=== PATIENT | female | born 1965 | race Two or more races ===

== ENCOUNTER → 2024-09-11 09:15 | Outpatient (BNV) | payer OTHER, SELFPAY | PROVIDERS: Visit Provider Psychiatry & Neurology Psychiatry | DX: F33.2 Major depressive disorder, recurrent severe without psychotic features (principal); F41.1 Generalized anxiety disorder; F45.42 Pain disorder with related psychological factors; H91.90 Unspecified hearing loss, unspecified ear | CPT/HCPCS: 90792 ==

== ENCOUNTER 2024-09-18 08:14 | Outpatient (REF) | payer OTHER, SELFPAY ==
--- NOTE | 2024-09-18 08:22 | ECG_ITS ---
Test Reason : F33.2, F41.1, H91.90 Blood Pressure : */* mmHG Vent. Rate : 75 BPM Atrial Rate : 75 BPM P-R Int : 188 ms QRS Dur : 92 ms QT Int : 418 ms P-R-T Axes : 71 -5 54 degrees QTcB Int : 466 ms Normal sinus rhythm Normal ECG No previous ECGs available Referred By: Socorro Tripp Electronically Signed By: ESTEVAN LUA
[2024-09-18 08:48] LABS: MANUAL DIFF FLAG NO
[2024-09-18 09:29] LABS: Basophils Absolute Auto 0.1 X10*3/uL (0.0-0.2); Basophils Percent Auto 0.6 % (0-2); Eosinophils Absolute Auto 0.2 X10*3/uL (0.0-0.4); Eosinophils Percent Auto 2.3 % (0-4); Hematocrit 41.2 % (37.0-47.0); Hemoglobin 13.7 g/dl (12.0-16.0); Imm Gran Abs Auto 0.02 X10*3/uL (0.00-0.03); Imm Gran Pct Auto 0.3 % (0.0-0.4); Lymphocytes Percent Auto 26.1 % (20-40); Mean Corpuscular HGB Conc 33.3 g/dl (31.0-35.0); Mean Corpuscular Volume 90.2 fL (80.0-98.0); Mean Platelet Volume 10.4 fL (9.4-12.3); Monocytes Absolute Auto 0.5 X10*3/uL (0.1-1.2); Monocytes Percent Auto 6.7 % (2-11); Platelet Count 258 X10*3/uL (160-400); Red Blood Count 4.57 X10*6/uL (4.20-5.50); White Blood Count 7.8 X10*3/uL (4.8-10.8)
[2024-09-18 09:48] LABS: Appearance Urine Clear; Color Urine Yellow; Glucose Urine UA Negative (Negative); Leukocyte Esterase Urine Trace (Negative); Nitrite Urine Negative (Negative); PH 5.5 (5.0-9.0); Specific Gravity - Urine 1.025 (1.005-1.025); UMIC TRIGGER UA YES; Urine Blood Negative (Negative); Urine Ketones Negative (Negative); Urine Protein Negative (Neg-Trace)
[2024-09-18 09:50] LABS: Estimated Average Glucose 111 mg/dL; Hemoglobin A1C 132.0054 umol/L; Hemoglobin A1c % 5.5 % (<6.0)
[2024-09-18 10:09] LABS: Erythrocyte Sedimentation Rate 7 MM/HR (0-20)
[2024-09-18 10:13] LABS: Alanine Aminotransferase 45 U/L (0-31); Albumin Level 4.1 g/dL (3.5-5.0); Alkaline Phosphatase 105 U/L (39-117); Anion Gap 11 (12-20); Aspartate Amino Transferase 33 U/L (5-31); Bilirubin Total 0.7 mg/dL (0.0-1.0); Blood Urea Nitrogen 13 mg/dL (9-16); C Reactive Protein 0.13 mg/dL (< or = 0.50); Calcium 8.9 mg/dL (8.4-10.2); Carbon Dioxide 26 mmol/L (22-29); Chloride 110 mmol/L (96-108); Cholesterol 162 mg/dL (<200); Estimated Glomerular Filt Rate 57; Glucose Fasting 96 mg/dL (60-99); HDL Cholesterol 50 mg/dL (>40); Iron 97 mcg/dL (30-160); LDL Cholesterol Calculated 89 mg/dL (<100); Percent Iron Saturation 34 % (15-50); Phosphorus 3.2 mg/dL (2.7-4.5); Potassium 3.9 mmol/L (3.3-5.1); Sodium 143 mmol/L (135-145); Total Iron Binding Capacity 285 mcg/dL (228-428); Total Protein 7.2 g/dL (6.5-8.0); Triglycerides 115 mg/dL (<150); Unsaturated Iron Binding 188 ug/dL
[2024-09-18 10:21] LABS: Ferritin 43 ng/mL (10-250); Thyroid Stimulating Hormone 1.33 uIU/mL (0.32-4.0); Vitamin D 25-OH Total 69.4 ng/mL (>30)
[2024-09-18 10:34] LABS: Rheumatoid Factor < 13.0 IU/mL (<15.0)
[2024-09-18 10:35] LABS: Parathyroid Hormone Intact 96.8 pg/mL (8.7-77.1)
[2024-09-18 11:03] LABS: Folate 10.1 ng/mL (> or = 4.0); Vitamin B12 323 pg/mL (200-900)
[2024-09-18 13:00] LABS: Bacteria Urine 1+ (None Seen); Hyaline Casts Urine 0-2 /LPF (0-2); RBC Urine 0-2 /HPF (0-2); WBC Urine 0-5 /HPF (0-5)
[2024-09-21 16:19] LABS: Homocysteine 15.4 umol/L (<10.4)
[2024-09-23 10:43] LABS: Methylmalonic Acid 439 nmol/L (69-390)
[2024-09-23 12:33] LABS: Anti Nuclear Antibody Screen NEGATIVE (NEGATIVE)
[2024-09-24 15:12] LABS: Vitamin B1 15 nmol/L (8-30)
== END 2024-09-18 08:15 | disposition home or self-care (01) ==
LOC: HO.LAB 08:14
PROVIDERS: PCP Internal Medicine; Visit Provider Psychiatry & Neurology Psychiatry
DX: F33.2 Major depressive disorder, recurrent severe without psychotic features (principal); F41.1 Generalized anxiety disorder; H91.90 Unspecified hearing loss, unspecified ear; Z13.1 Encounter for screening for diabetes mellitus
CPT/HCPCS: 36415; 80053; 80061; 81001; 82306; 82607; 82728; 82746; 83036; 83090; 83540; 83735; 83921; 83970; 84100; 84425; 84443; 85025; 85652; 86038; 86140; 86431; 93005

== ENCOUNTER → 2024-09-18 08:22 | Outpatient (BNV) | payer OTHER, SELFPAY | PROVIDERS: PCP Internal Medicine; Visit Provider Internal Medicine | DX: F33.2 Major depressive disorder, recurrent severe without psychotic features (principal); F41.1 Generalized anxiety disorder | CPT/HCPCS: 93010 ==

== ENCOUNTER 2024-09-23 08:45 | Outpatient (RCR) | payer OTHER, SELFPAY ==
[2024-09-08 11:52] VITALS: BMI 27.6
[2024-09-08 11:53] VITALS: BP 128/66; PULSE 88; TEMP 37.1
--- NOTE | 2024-09-08 12:39 | PC.ADMIT ---
Patient is a 58 year old single female who was advised to come to [facility] by her outside providers d/t increased sxs of depression and anxiety. Patient reports many stresses including having family problems which involve her adult son and daughter. Feeling overwhelmed with increased anxiety as a result reporting having panic attacks, last time last week and experiencing brain fog to the point where she has to write everything down. She reports having mood swings feeling agitated at times and emptying her drawers throwing the contents in the drawers on the floor. Patient is unemployed. Patient reports she is disabled and has been on social security since 2008. Patient is alert and oriented x4. Calm and cooperative. She presented with depressed mood and anxious affect. Denied SI, no HI. She was given a copy of her safety plan if needed. Medications reconciled with patient and patient's pharmacy. She reports she is taking her medications as prescribed with the exception of Fosomax and Calcium Carbonate as she is having difficulty following the instructions. Medication education provided. She denied using any substances.
--- NOTE | 2024-09-10 14:56 | PHP/IOPCOSI ---
Pt's case has been opened and reviewed in treatment team.
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
--- NOTE | 2024-09-17 23:37 | P.PNPSP_ITS ---
Subjective Subjective Date of Service: 09/17/24 Reason For Visit: depression,anxiety Interim History: Patient seen for follow up. Been engaging in groups. Reports yesterday she received bad news involving her grandchild and his aggressive behaviors. She says her daughter's stressors and troubles at home with her children deeply sadden her. She talks about these issues and some of the past family history. She did not mention or complain of tinnitus. When I inquired how it had been going, she initially notes she hadn't been noticing. But then says perhaps there is some improvement because usually it is quite bothersome to her, and says lately she hasn't been paying attention to this. She is not sure if the stressors are distracting her or if there has been some improvement. Overall she is managing stress better since starting on medications. She is taking 2 mg diazepam in the AM and 7 mg memantine Er at night. She does still feel a little more tired throughout the day and is still getting rides to program until we spoke. I suggest we could try cutting the dose by half which she likes the idea of, and see if she feels less tired but still able to manage anxiety. Medication Compliance: Yes Side effects from medications: Yes (as noted above) Attending Groups: Yes Review of Systems Acute medical concerns: No Mental Status Exam Mental Status Exam Narrative: Alert, oriented, in no acute distress. Calmer, more relaxed. Mood still some depression, affect variable, less depressed, mood congruent no tearfulness or lability. Speech normal. Thought process linear, coherent. Thought content related to stressors, more goal-directed and future-oriented, denies any hopelessness or SI. Denies any aggressive ideation or HI. No paranoia or delusional content elicited. No evidence of psychosis. Cognition grossly intact. Insight and judgment - fair but adequate Diagnostics Vital Signs (24Hr): BMI result Body Mass Index 27.6 Assessment & Plan Assessment & Plan (1) MDD (major depressive disorder), recurrent severe, without psychosis: Status: Acute Code(s): F33.2 - Major depressive disorder, recurrent severe without psychotic features (2) FELIX (generalized anxiety disorder): Status: Acute Code(s): F41.1 - Generalized anxiety disorder (3) Pain disorder associated with psychological and physical factors: Status: Acute Code(s): F45.42 - Pain disorder with related psychological factors (4) Hearing loss: Status: Acute Code(s): H91.90 - Unspecified hearing loss, unspecified ear Assessment and Plan: associated with tinnitus, vertigo (?Meniere's) Plan reduce to 1 mg diazepam qam (1/2 tablet of 2 mg tablet) as tolerated (to target anxiety, tinnitus, vertigo) continue memantine ER 7 mg qhs (for cognition, executive fxn, chronic pain) will titrate to 14 mg/d over weekend continue fluoxetine 40 mg qam continue hydroxyzine 25 mg TID prn (only works as 50 mg. will trial diazepam first) continue olanzapine 5 mg qhs continue other regular medications: vitamin D3 5000 IU qd, meclizine 12.5 mg BID, atorvastatin 40 mg qd, alendronate 70 mg qweekly, cetirizine 10 mg qd, esomeprazole 40 mg qam, calcium carbonate 600 mg discontinued: trazodone Routine lab work and routine EKG ordered UDS as indicated Continue to monitor Patient educated on: diagnosis, medication risk/benefits and medical condition Informed Consent: understands Reason for contiued partial hosp. stay Substantial Risk for: inability to function and med/psych decompensation Certification I certify that partial hospital treatment is medically necessary due to the symptoms and problems resulting from the patient's mental illness and the failure to treat the patient at the partial hospital level of care would likely result in the patient requiring inpatient psychiatric care which could not be prevented at a less intensive level of care. Total time managing care of this patient today __30__ minutes. Discharge Plan Discharge Attending provider: Socorro Tripp Medications: New memantine 14 mg capsule,sprinkle,ER 24hr 14 mg PO .QHS Qty: 30 0RF Continued atorvastatin 40 mg tablet 40 mg PO DAILY cetirizine 10 mg tablet 10 mg PO DAILY Rx Instructions: Last Filled 08/12/24 alendronate 70 mg tablet 70 mg PO QWEEK Rx Instructions: Last Filled 08/12/24 olanzapine 5 mg tablet 5 mg PO BEDTIME meclizine 12.5 mg tablet 12.5 mg PO BID calcium carbonate [Calcium 600] 600 mg calcium (1,500 mg) tablet 600 mg PO DAILY Rx Instructions: Last Filled 08/12/24 esomeprazole magnesium 40 mg capsule,delayed release(DR/EC) 40 mg PO QAM fluoxetine 10 mg capsule See Rx Instructions .ROUTE .COMPLEX Rx Instructions: Last Filled 08/15/24 Total dose 50 mg daily. hydroxyzine HCl 25 mg tablet 25 mg PO TID PRN (Reason: Anxiety) Rx Instructions: Take 1/2 to 1 tab TID PRN anxiety cholecalciferol (vitamin D3) 125 mcg (5,000 unit) capsule 125 mcg PO DAILY fluoxetine 40 mg capsule 40 mg PO DAILY Changed diazepam 2 mg tablet 1 mg PO BID PRN (Reason: as directed) Qty: 30 0RF Discontinued trazodone 50 mg tablet See Rx Instructions .ROUTE .COMPLEX Rx Instructions: Take 1-2 tabs QHS PRN Insomnia. Last filled 08/15/24 Print Language: Gibraltarian
--- NOTE | 2024-09-22 23:02 | HO.PHPPROGNO ---
Subjective Subjective Date of Service: 09/22/24 Reason For Visit: depression,anxiety Interim History: Patient seen for follow-up. Anticipating discharge at end of day. Is tolerating diazepam 1 mg daily around 8 AM. Tinnitus seems less noticable during the day, but notices it more so at night. Severity at a 5/10 during the day and an 8/10 in evening. She is no longer feeling sleepy and is able to drive. She reports mood is still low but feels this is related to daughter's situation. Also was having concerns about cognition, but has been tolerating the memantine and is hoping it helps. She cant say for sure yet if she notices any improvement in cognition thus far, but has been much less preoccupied and frustrated. She notes that her daughter worries now more than she does. She feels she is functioning and just focused on what I need to do and living my life . She relays being in good spirits today. Sleep is better. Appetite and energy stable. Denies SI, HI, AH, VH. She will be meeting up with her psych provider in October. I will send refills for the new medications but she will call tomorrow to let me know if she needs any other refills at this time. Medication Compliance: Yes Side effects from medications: No Attending Groups: Yes Review of Systems Acute medical concerns: No Medical Review of Systems: changed (some improvement in tinnitus/ear pain) Mental Status Exam Mental Status Exam Narrative: Alert, oriented, in no acute distress. PLeasant, well-related. Mood stable, affect less depressed, less anxious, brighter. Speech normal. Thought process linear, coherent, goal-directed . Thought content, future-oriented, related to stressors, less somatic preoccupation, denies any hopelessness or SI. Denies any aggressive ideation or HI. No paranoia or delusional content elicited. No evidence of psychosis. Cognition grossly intact. Insight and judgment - fair-good Diagnostics Vital Signs (24Hr): BMI result Body Mass Index 27.6 Assessment & Plan Assessment & Plan (1) MDD (major depressive disorder), recurrent severe, without psychosis: Status: Acute Code(s): F33.2 - Major depressive disorder, recurrent severe without psychotic features (2) FELIX (generalized anxiety disorder): Status: Acute Code(s): F41.1 - Generalized anxiety disorder (3) Pain disorder associated with psychological and physical factors: Status: Acute Code(s): F45.42 - Pain disorder with related psychological factors (4) Hearing loss: Status: Acute Code(s): H91.90 - Unspecified hearing loss, unspecified ear Assessment and Plan: associated with tinnitus, vertigo (?Meniere's) Plan Discharge from [facility] continue diazepam 2 mg/d (1/2 tablet = 1 mg BID) as tolerated (to target anxiety, tinnitus, vertigo) continue memantine ER 14 mg qhs (for cognition, executive fxn, chronic pain) continue fluoxetine 40 mg qam continue hydroxyzine 25 mg TID prn (only works as 50 mg. will trial diazepam first) continue olanzapine 5 mg qhs continue other regular medications: vitamin D3 5000 IU qd, meclizine 12.5 mg BID, atorvastatin 40 mg qd, alendronate 70 mg qweekly, cetirizine 10 mg qd, esomeprazole 40 mg qam, calcium carbonate 600 mg discontinued: trazodone Routine lab work will recheck PTH in 6 months (patient start on vitamin D for deficiency ) pending remaining labs B1, Hcy... Reviewed EKG with borderline QTc, and will send to PCP to recheck in 3-6 months (consider switching Seroquel for QTc prolongation) Patient aware Will defer further medication management to outpatient provider Patient educated on: diagnosis, medication risk/benefits and medical condition Informed Consent: understands Reason for contiued partial hosp. stay Substantial Risk for: stable for discharge Certification I certify that partial hospital treatment is medically necessary due to the symptoms and problems resulting from the patient's mental illness and the failure to treat the patient at the partial hospital level of care would likely result in the patient requiring inpatient psychiatric care which could not be prevented at a less intensive level of care. Total time managing care of this patient today _30___ minutes. Discharge Plan Discharge Attending provider: Socorro Tripp Medications: New memantine 14 mg capsule,sprinkle,ER 24hr 14 mg PO .QHS Qty: 30 0RF Continued atorvastatin 40 mg tablet 40 mg PO DAILY cetirizine 10 mg tablet 10 mg PO DAILY Rx Instructions: Last Filled 08/12/24 alendronate 70 mg tablet 70 mg PO QWEEK Rx Instructions: Last Filled 08/12/24 olanzapine 5 mg tablet 5 mg PO BEDTIME meclizine 12.5 mg tablet 12.5 mg PO BID calcium carbonate [Calcium 600] 600 mg calcium (1,500 mg) tablet 600 mg PO DAILY Rx Instructions: Last Filled 08/12/24 esomeprazole magnesium 40 mg capsule,delayed release(DR/EC) 40 mg PO QAM fluoxetine 10 mg capsule See Rx Instructions .ROUTE .COMPLEX Rx Instructions: Last Filled 08/15/24 Total dose 50 mg daily. hydroxyzine HCl 25 mg tablet 25 mg PO TID PRN (Reason: Anxiety) Rx Instructions: Take 1/2 to 1 tab TID PRN anxiety cholecalciferol (vitamin D3) 125 mcg (5,000 unit) capsule 125 mcg PO DAILY fluoxetine 40 mg capsule 40 mg PO DAILY Changed diazepam 2 mg tablet 1 mg PO BID PRN (Reason: as directed) Qty: 30 0RF Discontinued trazodone 50 mg tablet See Rx Instructions .ROUTE .COMPLEX Rx Instructions: Take 1-2 tabs QHS PRN Insomnia. Last filled 08/15/24 Print Language: Maltese
--- NOTE | 2024-10-02 09:28 | PC.NURSE ---
On 10/01/24 I left a message with Dr. Mendel Larson's manager medical device to confirm that they received lab results that were faxed on 09/30/24 including patient's PTH level of 96.[address] Magañaudes recommendation to Dr. Oglesby to re-check PTH level in 3-6 months. Awaiting call back.
--- NOTE | 2024-10-02 12:20 | PC.NURSE ---
Spoke to Fire Extinguisher Technician Alexandra from patient's PCP's office who confirmed they did receive faxed lab results that I sent them. I also reviewed patient's PTH of 96.[address] Magañaudes recommendation that Amanda's PCP recheck her PTH level in 3-6 months. Alexandra stated she will review with PCP.
== END 2024-09-23 23:59 | disposition home or self-care (01) ==
LOC: HO.PHPA 08:45
PROVIDERS: Visit Provider Psychiatry & Neurology Psychiatry
DX: F33.2 Major depressive disorder, recurrent severe without psychotic features (principal); F41.1 Generalized anxiety disorder; F45.42 Pain disorder with related psychological factors; H91.90 Unspecified hearing loss, unspecified ear; Z79.899 Other long term (current) drug therapy
CPT/HCPCS: 90791; 90853